=== PATIENT | female | born 1970 | race Caucasian/White ===

== ENCOUNTER → 2017-11-20 | Day surgery (SDC) | payer OTHER ==
[~2017-11-20] VITALS: Ht 172.7 cm; Wt 79.4 kg
[~2017-11-20] MED LIST: ALEVE220 M1 PO; ATIVAN1 M1 PO; FLUOXETINE HCL60 MG PO; LYRICA75 M1 PO; OXYCODONE HCL10 M2 PO; PLAQUENIL200 M1 PO; SOMA250 M1 PO; TRAZODONE HCL50 M1 PO
--- NOTE | 2017-11-20 08:16 | History & Physical Pre-Op ---
General Information and HPI History of Present Illness: Sydney is a 46-year-old female with a long-standing and worsening complaint of arthritis to her right foot. The patient has undergone an extended course of conservative care, including shoe gear and activity modification, rest, immobilization and courses of NSAIDs. None of this is yielded her any significant relief. The patient presents today for preoperative surgical consultation. The patient was referred to our office from Lobito Leija DPM. Allergies/Medications Allergies: Coded Allergies: doxycycline (RENAL FAILURE 11/15/17) Home Med list Carisoprodol (SOMA) 250 MG TABLET 1 TAB PO BID PRN MUSCLE SPASMS (Reported) Fluoxetine HCl 60 MG TABLET 1 TAB PO DAILY MENTAL HEALTH (Reported) Hydroxychlorquine (Plaquenil) 200 MG TABLET 1 TAB PO DAILY POLYARTHRITIS ( Reported) LORazepam (Ativan) 1 MG TAB 1 TAB PO PRN ANXIETY (Reported) Naproxen Sodium (Aleve) 220 MG CAPSULE 2 CAP PO PRN PAIN (Reported) Oxycodone HCl 10 MG TABLET 1-2 TAB PO Q6-8H PRN PAIN (Reported) Pregabalin (Lyrica) 75 MG CAPSULE 2 CAP PO QPM FIBROMYALGIA (Reported) Pregabalin (Lyrica) 75 MG CAPSULE 1 CAP PO QAM FIBROMYALGIA (Reported) Trazodone HCl 50 MG TABLET 1 TAB PO QHS SLEEP (Reported) Past History Medical History Musculoskeletal: fibromyalgia Surgical History Pertinent Surgical History: non-contributory Review of Systems Review of Systems: Unremarkable except for that noted discharge neuromas Exam & Diagnostic Data Physical Exam: Lungs clear bilaterally. Heart sounds rate and rhythm regular. Lower extremity physical exam demonstrates intact pedal pulses bilaterally. Pulses dorsalis pedis and posterior tibial arteries are palpable bilaterally. Patient without any sensory motor deficits. Deep tendon reflexes grossly intact. Patient noted to have pain with palpation or range of motion through the metatarsophalangeal joint of the right foot. Exostoses noted dorsally at the joints. Assessment/Plan Assessment/Plan: Painful exostoses right foot. A lengthy discussion reviewing both surgical and conservative options was held the patient at bedside and the patient elects to go forward with surgery despite the risks. As Ranked By This Provider Problem List: 1. Primary osteoarthritis, right ankle and foot Attending MD Review Statement Attending Statement Attending MD Statement: examined this patient
--- NOTE | 2017-11-20 11:24 | Operative Report ---
Operative/Inv Procedure Report Surgery Date: 11/20/17 Name of Procedure: 1 Cheilectomy right foot 2 ostectomy second met head right 3 ostectomy third met and right 4 ostectomy fourth metatarsal head right 5 excision of soft tissue mass right Pre-Operative Diagnosis: 1 arthritis first MPJ right 2 exostosis second met head right 3 exostosis third met head right 4 exostosis fourth met head right 5 soft tissue mass right Post-Operative Diagnosis: The same Estimated Blood Loss: scant Surgeon/Inspector Handbag Frames: Fany KRAUSE,Elias Leija DPM Anesthesia: moderate sedation, block Operative/Procedure Note Note: After obtaining informed consent the patient was brought to the operating room and placed on the operating table in the supine position. The patient isn't securely fastened to the operating table utilizing safety belt. After administration of IV sedation, 10 mL of 0.5% Marcaine plain was obtained about the patient's right ankle. The ankle tourniquet was placed about the patient's right lower extremity. 2 g of Ancef were delivered intravenously times one dose. Right foot and ankle within scrubbed prepped and draped in usual aseptic manner. The right lower extremity is elevated to examine to limb, which point the ankle tourniquet inflated 250 mmHg. Attention directed dorsal aspect the right foot, where a linear incision was made over the first MPJ right. It was then dissected down to the capsule was incised linearly. This exposed exostoses was removed a sagittal bone saw. The capture structures reapproximated 3-0 Vicryl subtenons tissues reports a 4-0 Vicryl skin is reprepped for Monocryl. Attention was then directed to the second interspace right where a linear incision was dissected between the distal metatarsal heads. Sagittal bone saw was utilized to resect the distal osseous segments and there both freed and passed the operative field. Soft tissue mass identified at the medial aspect of the first interspace was wedged out and passed from the operative field was sent a specimen for pathologic inspection. A linear incision was made overlying the distal fourth metatarsal which was incised reflected was then deepened down to the periosteum overlying the distal fourth metatarsal which is incised reflected. Sagittal bone saw was utilized to resect the distal osseous segment was freed from the operative field. The deep tissues through both incisions were then reapproximated 4-0 Vicryl and the skin is reprepped for nylon. The incisions were then dressed with Xeroform 4 x 4's Kerlix and an Orss wrap. The patient was noted tolerate both procedure and anesthesia well and the patient was transported from the operating room to recovery by sent stable best assess intact all digits right foot. Please cc a copy of this dictation to Lobito Leija DPM.
== END ==
LOC: STS 01:34
DX: M20.11 Hallux valgus (acquired), right foot (principal); M19.071 Primary osteoarthritis, right ankle and foot; M89.9 Disorder of bone, unspecified; D21.21 Benign neoplasm of connective and other soft tissue of right lower limb, including hip; M79.7 Fibromyalgia; Z87.891 Personal history of nicotine dependence
CPT/HCPCS: J0690; J1100; J2001; J2250